=== PATIENT | male | born 2000 | race Two or more races ===

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

== ENCOUNTER 2019-05-13 22:16 | Emergency (ER) | payer MEDICAID ==
[~2019-05-13] VITALS: Ht 175.3 cm; Wt 72.6 kg
[2019-05-13 23:04] VITALS: BP 147/89
[2019-05-14] MEDS ORDERED: LIDOCAINE 1% HCL (LOCAL ANESTH.) INJ 20ML MDV ID ONE (05:30)
[2019-05-14] MEDS ORDERED: LIDOCAINE 1% HCL (LOCAL ANESTH.) INJ 20ML MDV ONE (05:32)
== END 2019-05-14 06:10 | disposition home or self-care (01) ==
LOC: ER 22:18
DX: S51.811A Laceration without foreign body of right forearm, initial encounter (principal); W34.010A Accidental discharge of airgun, initial encounter; Y93.89 Activity, other specified; Y92.89 Other specified places as the place of occurrence of the external cause; Y99.8 Other external cause status
CPT/HCPCS: 12001; 73090; 99283; J2001